=== PATIENT | female | born 1975 | race Caucasian/White ===

== ENCOUNTER → 2019-10-23 14:00 | Outpatient (BNVA) | payer SELFPAY | PROVIDERS: Family Provider Nurse Practitioner Women's Health; Referring Provider Nurse Practitioner Women's Health; Visit Provider Nurse Practitioner Women's Health | DX: N93.9 Abnormal uterine and vaginal bleeding, unspecified (principal); N83.11 Corpus luteum cyst of right ovary; D25.9 Leiomyoma of uterus, unspecified | CPT/HCPCS: 76830; 85025 ==

== ENCOUNTER → 2019-11-27 13:43 | Outpatient (BNVA) | payer SELFPAY | PROVIDERS: Family Provider Nurse Practitioner Women's Health; Visit Provider Nurse Practitioner Women's Health | DX: N93.9 Abnormal uterine and vaginal bleeding, unspecified (principal) | CPT/HCPCS: 81025 ==

== ENCOUNTER → 2019-11-28 08:18 | Outpatient (BNVA) | payer SELFPAY | PROVIDERS: Family Provider Nurse Practitioner Women's Health; Visit Provider Nurse Practitioner Women's Health | DX: N93.9 Abnormal uterine and vaginal bleeding, unspecified (principal) | CPT/HCPCS: 88305 ==

== ENCOUNTER 2020-04-02 15:15 | Outpatient (CLI) | payer OTHER, SELFPAY ==
--- NOTE | 2020-04-02 15:22 | MM_ITS ---
WS: [id number] SCREENING DIGITAL MAMMOGRAM WITH CAD HISTORY: SCREENING COMPARISON: 11/22/2018 Bilateral CC and MLO views submitted. Computer aided detection analyzed. Breast composition: The breasts are heterogeneously dense, which may obscure small masses. Area of ar chitectural distortion in the superior LEFT breast was not present on the prior study. Otherwise lisandra sts are negative. MM/[place] [id number] IMPRESSION: BI-RADS: 0-Incomplete: Need additional imaging evaluation FOLLOW UP: Need Additional Imaging LEFT breast: Spot compression views (CC and MLO). True ML. Ultrasound to follow if abnormality persists.
== END 2020-04-02 15:16 | disposition home or self-care (01) ==
LOC: RADSHAW 15:20
PROVIDERS: PCP Family Medicine; Visit Provider Nurse Practitioner Women's Health
DX: Z12.31 Encounter for screening mammogram for malignant neoplasm of breast (principal)
CPT/HCPCS: 77067

== ENCOUNTER 2020-05-07 08:39 | Outpatient (CLI) | payer SELFPAY ==
--- NOTE | 2020-05-07 09:00 | MM_ITS ---
WS: [id number] ADDITIONAL VIEWS LEFT MAMMOGRAM LEFT BREAST ULTRASOUND HISTORY: Left breast abnormal mammo- COMPARISON: 04/02/2020 and 11/22/2018 LEFT MAMMOGRAM: Spot compression views and true ML. Mild architectural distortion 12:00 nearly completely resolves with additional views. There is still a small amount of distortion remaining and ultrasound will be performed. LEFT BREAST ULTRASOUND 2-D and color Doppler imaging submitted. Ultrasound directed to the 12:00 axis is negative for distortion or mass. There are a few small benig n-appearing cysts which are not evident by mammography. MM/[place] [id number] IMPRESSION: BI-RADS: 2-Benign FOLLOW UP: 1 Year Follow-up
--- NOTE | 2020-05-07 09:30 | US_ITS ---
WS: [id number] ADDITIONAL VIEWS LEFT MAMMOGRAM LEFT BREAST ULTRASOUND HISTORY: Left breast abnormal mammo- COMPARISON: 04/02/2020 and 11/22/2018 LEFT MAMMOGRAM: Spot compression views and true ML. Mild architectural distortion 12:00 nearly completely resolves with additional views. There is still a small amount of distortion remaining and ultrasound will be performed. LEFT BREAST ULTRASOUND 2-D and color Doppler imaging submitted. Ultrasound directed to the 12:00 axis is negative for distortion or mass. There are a few small benig n-appearing cysts which are not evident by mammography. US/US breast LT limited* [id number] IMPRESSION: BI-RADS: 2-Benign FOLLOW UP: 1 Year Follow-up
== END 2020-05-07 08:40 | disposition home or self-care (01) ==
LOC: RADSHAW 08:43
PROVIDERS: PCP Family Medicine; Visit Provider Nurse Practitioner Women's Health
DX: R92.8 Other abnormal and inconclusive findings on diagnostic imaging of breast (principal); N60.02 Solitary cyst of left breast
CPT/HCPCS: 76642; 77065

== ENCOUNTER → 2020-11-03 09:20 | Outpatient (BNVA) | payer SELFPAY | PROVIDERS: PCP Family Medicine; Visit Provider Nurse Practitioner Women's Health | DX: N93.9 Abnormal uterine and vaginal bleeding, unspecified (principal) | CPT/HCPCS: 88175 ==

== ENCOUNTER 2021-10-13 15:15 | Outpatient (CLI) | payer OTHER, SELFPAY ==
--- NOTE | 2021-10-13 15:23 | MM_ITS ---
WS: [id number] BILATERAL 3D TOMOSYNTHESIS DIGITAL SCREENING MAMMOGRAPHY WITH CAD CLINICAL INFORMATION: SCREENING HISTORY: Screening mammogram. No current complaints. COMPARISON: April 02, 2020 TECHNIQUE: Bilateral CC and MLO views. FINDINGS: The breasts are composed of heterogeneous fibroglandular density tissue, which can limit the detectio n of small underlying mass lesions. Incidental punctate calcifications. No suspicious mass, asymmetry , calcifications, or architectural distortion. No evidence of malignancy. MM/[place] [id number] IMPRESSION: BI-RADS: 2-Benign FOLLOW UP: 1 Year Follow-up Recommend return to annual screening mammography.
== END 2021-10-13 15:16 | disposition home or self-care (01) ==
LOC: RADSHAW 15:18
PROVIDERS: PCP Family Medicine; Visit Provider Nurse Practitioner Women's Health
DX: Z12.31 Encounter for screening mammogram for malignant neoplasm of breast (principal)
CPT/HCPCS: 77063; 77067

== ENCOUNTER 2022-10-06 12:39 | Outpatient (CLI) | payer BC, SELFPAY | END 2022-10-06 12:40 | disposition home or self-care (01) | PROVIDERS: PCP Family Medicine; Visit Provider Family Medicine | DX: J45.40 Moderate persistent asthma, uncomplicated (principal) | CPT/HCPCS: 94010; 94726; 94729 ==

== ENCOUNTER 2022-10-13 12:37 | Outpatient (CLI) | payer BC, SELFPAY ==
--- NOTE | 2022-10-13 12:50 | MM_ITS ---
WS: [id number] BILATERAL 3D TOMOSYNTHESIS DIGITAL SCREENING MAMMOGRAPHY WITH CAD CLINICAL INFORMATION: SCREENING HISTORY: Screening mammogram. No current complaints. COMPARISON: October 13, 2021 TECHNIQUE: Bilateral CC and MLO views. FINDINGS: The breasts are composed of heterogeneous fibroglandular density tissue, which can limit the detectio n of small underlying mass lesions. No suspicious mass, asymmetry, calcifications, or architectural d istortion. No evidence of malignancy. A few incidental punctate calcifications. MM/[place] [id number] IMPRESSION: BI-RADS: 2-Benign FOLLOW UP: 1 Year Follow-up Recommend return to annual screening mammography.
== END 2022-10-13 12:38 | disposition home or self-care (01) ==
PROVIDERS: PCP Family Medicine; Visit Provider Nurse Practitioner Women's Health
DX: Z12.31 Encounter for screening mammogram for malignant neoplasm of breast (principal)
CPT/HCPCS: 77063; 77067

== ENCOUNTER → 2023-11-17 13:00 | Outpatient (BNVA) | payer BC, SELFPAY | PROVIDERS: PCP Family Medicine; Visit Provider Nurse Practitioner Women's Health | DX: R53.83 Other fatigue (principal); Z12.4 Encounter for screening for malignant neoplasm of cervix; Z01.419 Encounter for gynecological examination (general) (routine) without abnormal findings; N93.9 Abnormal uterine and vaginal bleeding, unspecified; N39.3 Stress incontinence (female) (male) | CPT/HCPCS: 80053; 82306; 84439; 84443; 85025; 87624 ==

== ENCOUNTER → 2024-01-10 08:36 | Outpatient (BNVA) | payer BC, SELFPAY | PROVIDERS: PCP Family Medicine; Visit Provider Obstetrics & Gynecology | DX: N92.6 Irregular menstruation, unspecified (principal); D25.9 Leiomyoma of uterus, unspecified | CPT/HCPCS: 76830 ==

== ENCOUNTER 2024-01-29 01:40 | Observation (INO) | payer BC, SELFPAY ==
[2024-01-29] VITALS (22 sets, daily range): BP systolic 104–145; BP diastolic 68–93; PULSE 64–114; RESP 14–18; TEMP 36.3–36.7; O2SAT 94–100; BMI 27.4
--- NOTE | 2024-01-29 01:51 | ED_ITS ---
HPI - Abdominal Pain 2 General: Chief Complaint: Abdominal Pain Stated Complaint: Abd pain Time Seen by Provider: 01/29/24 01:41 Source: patient Mode of arrival: ambulatory Limitations: no limitations History of Present Illness: 48-year-old female states been having ri ght upper quadrant pain over the last months she was seen in ER in [place] was diagnosed with gallstones on the CT and ultrasound states she to follow-up with Dr. Aragon of general surgery here last week who plans on doing an endoscopic. She states that tonight she has been having severe right upper quadrant pain that radiates to her back states pain is 8 out of 10 she been having some nausea denies any fevers denies any worsening improving factors. Associated Symptoms: Reports nausea; Denies chills, diarrhea, dysuria, fever(s) and vomiting Review of Systems 2 Const: Denies: fever(s), chills, body aches or change in appetite ENMT: Denies: throat pain or dental pain Card: Denies: chest pain Resp: Denies: dyspnea GI: Reports: abdominal pain and nausea; Denies: vomiting or diarrhea : Denies: dysuria Musc: Denies: neck pain or back pain Skin/Breast: Denies: rash Neuro: Denies: headache(s) PFSH ED 2 PFSH: Medical History No pertinent past medical history neghx: htn,dm,thyroid,dvt/pe PCP: Dr. Alvarado Contraceptive management Abnormal uterine bleeding Surgical History History of tonsillectomy and adenoidectomy (~1986) Family History Grandmother Diabetes Maternal Grandmother Father Hypertension Mother Family history of thyroid problem Thyroid disease hypothyroid Family/Other Breast cancer Maternal aunt-breast cancer-dx in her 60s Paternal aunt-breast cancer-dx in her 40s Colon cancer Maternal Aunt--dx age 50's Cervical cancer Maternal Aunt Grandfather Stroke Maternal Denies family history of Ovarian cancer Heart disease Hypercholesteremia Uterine cancer Female Reproductive History: Para: 3 Spontaneous abortions: Yes Physical Exam 2 Const: COMMON NORMALS: no acute distress, patient oriented x3 and healthy appearing HENMT: COMMON NORMALS: normocephalic and atraumatic HEAD & SCALP: n ormocephalic and atraumatic Neck/C-Spine: COMMON NORMALS: full ROM and supple Chest: COMMONS NORMALS: normal inspection of the chest Resp: COMMON NORMALS: normal respiratory effort, No retractions, No use of accessory muscles and clear to auscultation bilaterally AUSCULTATION: clear to auscultation bilaterally Cardio: COMMON NORMALS: regular rate, regular rhythm and No murmurs present (Cardio) RATE: regular rate RHYTHM: regular rhythm GI: COMMON NORMALS: Normal to inspection, nondistended, normoactive bowel sounds present, Soft to palpation and no masses PALPATION: Yes Soft to palpation and Yes Tenderness to palpation present (GI) Details: RUQ Extremity: COMMON NORMALS: normal to inspection and full ROM Neuro: COMMON NORMALS: patient oriented x3, moves all extremities and no focal motor deficits Psych: COMMON NORMALS: mental status grossly normal, Normal thought process present and cooperative THOUGHT PROCESS: Normal thought process present Skin: COMMON NORMALS: no rashes or lesions noted and no wounds GENERAL SKIN EXAM: no rashes or lesions noted Course 2 Vital Signs: Vital signs: Vital Signs Temperature 97.7 F 01/29/24 01:45 Pulse Rate 68 01/29/24 03:47 Respiratory Rate 16 01/29/24 02:33 Blood Pressure 104/68 01/29/24 03:47 Pulse Oximetry 100 01/29/24 03:47 Oxygen Delivery Me thod Nasal Cannula 01/29/24 03:47 Oxygen Flow Rate 2 01/29/24 03:47 MDM - Abdominal Pain Medical Decision Making 48-year-old female who presents here with right upper quadrant abdominal pain she had required multiple doses of pain meds to get her pain under control ultrasound does show distended gallbladder with stones and sludge could be acute or chronic gallbladder disease I did speak to the surgeon on-call will admit at this time did give her dose of antibiotics Medical Records I reviewed the patient's medical records. Lab Data I reviewed the patient's lab results. 01/29/24 02:00 01/29/24 02:00 Labs/Radiology: Radiology Impressions Gallbladder Ultrasound 01/29/24 01:51 IMPRESSION: 1. Distended gallbladder with stones and sludge as well as gallbladder wall thickening. Findings could be related to acute or chronic gallbladder disease. If there is a strong clinical concern for cholecystitis, nuclear medicine hepatobiliary study may add additional information. 2. Mildly dilated common bile duct measuring 8 mm. No definite intraductal stones are appreciated. If there is a clinical concern for an intraductal stone, MRCP/ERCP may add additional information. Abdomen/Pelvis CT 01/29/24 02:28 IMPRESSION: 1. Mild prominence of the intra and extrahepatic bile ducts. No definite intraductal stone is appreciated. Recommend clinical correlation. If there is a clinical concern for an intraductal stone, ERCP/MRCP may add additional information. 2. Mild distension of the gallbladder. No definite gallstones are appreciated. Again, if there is a strong clinical concern for gallbladder disease, ultrasound may add additional information. COMMENTS: Consistent with the [employer]'s Incidental Findings Committee white paper (J Am Marcella Radiol 2018): Any incidental renal lesion less than 1 cm or classified as too small to characterize, or any incidental cystic renal lesion characterized as simple-appearing, is likely benign. No follow-up imaging is recommended for these lesions per consensus recommendations based on imaging criteria. Laboratory Results WBC 8.95 10^3/uL (3.29-11.43) 01/29/24 02:00 RBC 4.66 10^6/uL (3.85-5.65) 01/29/24 02:00 Hgb 14.40 g/dL (11.27-16.99) 01/29/24 02:00 Hct 42.6 % (36-47) 01/29/24 02:00 MCV 91.4 fl (85-98) 01/29/24 02:00 MCH 30.9 pg (27-33) 01/29/24 02:00 MCHC 33.8 g/dL (30-55) 01/29/24 02:00 RDW 12.0 % (12.1-15.1) L 01/29/24 02:00 Plt Count 311 10^3/cmm (157-399) 01/29/24 02:00 MPV 9.5 fL (7.4-10.4) 01/29/24 02:00 Neut % (Auto) 46.0 % 01/29/24 02:00 Lymph % (Auto) 39.8 % 01/29/24 02:00 Payne % (Auto) 6.7 % 01/29/24 02:00 Eos % (Auto) 6.6 % 01/29/24 02:00 Baso % (Auto) 0.7 % 01/29/24 02:00 Neut # (Auto) 4.12 10^3/uL (1.8-7.7) 01/29/24 02:00 Lymph # (Auto) 3.6 10^3/uL (0.8-4.8) 01/29/24 02:00 Payne # (Auto) 0.6 10^3/uL (0.2-0.9) 01/29/24 02:00 Eos # (Auto) 0.6 10^3/uL (0.0-0.8) 01/29/24 02:00 Baso # (Auto) 0.1 10^3/uL (0.0-0.1) 01/29/24 02:00 Nucleated RBC % (auto) 0 % 01/29/24 02:00 Nucleated RBCs # 0.0 /100WBC 01/29/24 02:00 Sodium 138 mmol/L (136-145) 01/29/24 02:00 Potassium 3.7 mmol/L (3.5-5.1) 01/29/24 02:00 Chloride 104 mmol/L (98-107) 01/29/24 02:00 Carbon Dioxide 21 mmol/L (22-29) L 01/29/24 02:00 Anion Gap 16.7 (5-19) 01/29/24 02:00 BUN 14 mg/dL (6-20) 01/29/24 02:00 Creatinine 0.9 mg/dL (0.5-0.9) 01/29/24 02:00 GFR Calculation 67.4 mL/min (90-130) L 01/29/24 02:00 Glucose 114 mg/dL (65-115) 01/29/24 02:00 Calculated Osmolality 287 mOsm/kg (285-295) 01/29/24 02:00 Calcium 9.4 mg/dL (8.5-10.5) 01/29/24 02:00 Total Bilirubin 0.4 mg/dL (0.15-1.2) 01/29/24 02:00 AST 15 U/L (0-32) 01/29/24 02:00 ALT 16 U/L (0-33) 01/29/24 02:00 Alkaline Phosphatase 71 U/L (35-105) 01/29/24 02:00 Total Protein 7.2 g/dL (6.6-8.7) 01/29/24 02:00 Albumin 4.6 g/dL (3.5-5.2) 01/29/24 02:00 Globulin 2.6 g/dL (1.3-4.6) 01/29/24 02:00 Lipase 41 U/L (13-60) 01/29/24 02:00 HCG, Qual Negative (Negative) 01/29/24 02:00 Urine Color Dark yellow (Yellow) A 01/29/24 02:20 Urine Appearance Cloudy (CLEAR) A 01/29/24 02:20 Urine pH 6 (5-7) 01/29/24 02:20 Ur Specific [place] 1.020 (1.005-1.030) 01/29/24 02:20 Urine Protein Neg (Negative) 01/29/24 02:20 Urine Glucose (UA) Norm (Normal) 01/29/24 02:20 Urine Ketones Negative (Negative) 01/29/24 02:20 Urine Blood Trace (Negative) H 01/29/24 02:20 Urine Nitrate Positive (Negative) A 01/29/24 02:20 Urine Bilirubin Neg (Negative) 01/29/24 02:20 Urine Urobilinogen 1 mg/dL (Negative) H 01/29/24 02:20 Ur Leukocyte Esterase Negative (Negative) 01/29/24 02:20 Urine RBC 5-10 /hpf (0-2) H 01/29/24 02:20 Urine WBC 5-10 /hpf (0-5) H 01/29/24 02:20 Ur Squamous Epith Cells 5-10 /hpf (0-5) H 01/29/24 02:20 Amorphous Sediment Trace /hpf 01/29/24 02:20 Urine Bacteria 3+ /hpf (NONE) H 01/29/24 02:20 Urine Mucus 2+ /hpf 01/29/24 02:20 All radiology interpretation(s) finalized by discharge Discharge Plan Discharge Patient Disposition: Admitted As Inpatient Clinical Impression: Abdominal pain, Biliary colic, Cholecystitis Condition: Stable Prescriptions: No Action povidone-iodine [Betadine Swabsticks] 10 % swab 1 applic TOPICAL ONCE Qty: 1 0RF citalopram 10 mg tablet 20 mg PO DAILY omeprazole 40 mg capsule,delayed release(DR/EC) 40 mg PO DAILY norethindrone acetate 5 mg tablet See Rx Instructions .ROUTE .COMPLEX Qty: 90 1RF Dose Instruction: Take 1 tablet by mouth once daily Rx Instructions: Take 1 tablet by mouth once daily Referrals: Nicole Alvarado MD [Primary Care Provider] - Coding Level of Care Code ED Molding Machine Operator Helper for [facility]
--- NOTE | 2024-01-29 01:51 | USR_ITS ---
PROCEDURE INFORMATION: Exam: US Abdomen, Limited; Right Upper Quadrant Exam date and time: 01/29/2024 3:05 AM Age: 48 years old Clinical indication: Abdominal pain; Generalized; Additional info: Ruq pain TECHNIQUE: Imaging protocol: Real time ultrasound of the abdomen with image documentation. Limited exam focused on the right upper quadrant. COMPARISON: CT abdomen pelvis w con* [id number] 01/29/2024 2:39 AM FINDINGS: Liver: Normal. No masses. Gallbladder: The gallbladder is distended. There are stones and sludge within the gallbladder. The gallbladder wall is thickened measuring 5 mm. No pericholecystic fluid is identified. Biliary ducts: The common bile duct is mildly dilated measuring 8 mm. No definite intraductal stones are appreciated. Pancreas: The pancreas is poorly seen secondary to overlying bowel gas. Right kidney: Normal. No mass. No hydronephrosis. US/US gall bladder [id number] IMPRESSION: 1. Distended gallbladder with stones and sludge as well as gallbladder wall thickening. Findings could be related to acute or chronic gallbladder disease. If there is a strong clinical concern for cholecystitis, nuclear medicine hepatobiliary study may add additional information. 2. Mildly dilated common bile duct measuring 8 mm. No definite intraductal stones are appreciated. If there is a clinical concern for an intraductal stone, MRCP/ERCP may add additional information.
[2024-01-29] MEDS: morphine 4 mg/mL SDV 1 mL IVP (01:59)
[2024-01-29] MEDS: ondansetron 2 mg/ML SDV 2 mL 4 MG IVP (01:59)
[2024-01-29 02:09] LABS: Basophils # 0.1 10^3/uL (0.0-0.1); Basophils % 0.7 %; Eosinophils # 0.6 10^3/uL (0.0-0.8); Eosinophils % 6.6 %; Hematocrit 42.6 % (36-47); Lymphocytes # 3.6 10^3/uL (0.8-4.8); Lymphocytes % 39.8 %; Mean Corpuscular HGB Conc 33.8 g/dL (30-55); Mean Corpuscular Hemoglobin 30.9 pg (27-33); Mean Corpuscular Volume 91.4 fl (85-98); Mean Platelet Volume 9.5 fL (7.4-10.4); Monocytes # 0.6 10^3/uL (0.2-0.9); Monocytes % 6.7 %; Neutrophils # 4.12 10^3/uL (1.8-7.7); Nucleated Red Blood Cells % 0 %; Platelet Count 311 10^3/cmm (157-399); Red Blood Count 4.66 10^6/uL (3.85-5.65); White Blood Count 8.95 10^3/uL (3.29-11.43)
[2024-01-29 02:16] LABS: HCG, Serum Qual Negative (Negative)
[2024-01-29 02:23] LABS: Alanine Aminotransferase 16 U/L (0-33); Albumin Level 4.6 g/dL (3.5-5.2); Alkaline Phosphatase 71 U/L (35-105); Anion Gap 16.7 (5-19); Aspartate Amino Transferase 15 U/L (0-32); Blood Urea Nitrogen 14 mg/dL (6-20); Calcium 9.4 mg/dL (8.5-10.5); Carbon Dioxide 21 mmol/L (22-29); Chloride 104 mmol/L (98-107); Creatinine Clr Calc Pharmacy 81.9029; Globulin 2.6 g/dL (1.3-4.6); Glomerular Filtration Rate 67.4 mL/min (90-130); Glucose 114 mg/dL (65-115); Lipase 41 U/L (13-60); Osmolality Calculated 287 mOsm/kg (285-295); Potassium 3.7 mmol/L (3.5-5.1); Sodium 138 mmol/L (136-145); Total Bilirubin 0.4 mg/dL (0.15-1.2); Total Protein 7.2 g/dL (6.6-8.7)
--- NOTE | 2024-01-29 02:28 | CTR_ITS ---
PROCEDURE INFORMATION: Exam: CT Abdomen And Pelvis With Contrast Exam date and time: 01/29/2024 2:39 AM Age: 48 years old Clinical indication: Abdominal pain; Localized; Right upper quadrant (ruq); Patient HX: C/O ruq pain; Additional info: Abd pain TECHNIQUE: Imaging protocol: Computed tomography of the abdomen and pelvis with contrast. Radiation optimization: All CT scans at this facility use at least one of these dose optimization techniques: automated exposure control; mA and/or kV adjustment per patient size (includes targeted exams where dose is matched to clinical indication); or iterative reconstruction. Contrast material: OMNI 350; Contrast volume: 100 ml; Contrast route: INTRAVENOUS (IV); COMPARISON: CT abdomen pelvis w con* [id number] 09/17/2018 11:54 AM RADIATION DOSE METRICS: Total DLP (mGy-cm): 572.12 FINDINGS: Lungs: Lung bases are clear as visualized. Liver: There is a small benign appearing hepatic cyst. There is mild prominence of the intrahepatic bile ducts. The common bile duct measures proximally 8 mm in size. No definite intraductal stones are appreciated. The liver is otherwise normal. Gallbladder and biliary ducts: The gallbladder is mildly distended. No definite gallstones are appreciated. No pericholecystic fluid or gallbladder wall thickening is identified. Pancreas: Normal. No ductal dilation. Spleen: Normal. No splenomegaly. Adrenal glands: Normal. No mass. Kidneys and ureters: There are tiny benign-appearing renal cysts. The kidneys are otherwise normal. Stomach and bowel: Unremarkable. No obstruction. No mucosal thickening. Appendix: No evidence of appendicitis. Intraperitoneal space: There is trace free fluid within the pelvis. No free air is identified. Vasculature: Unremarkable. No abdominal aortic aneurysm. Lymph nodes: Unremarkable. No enlarged lymph nodes. Urinary bladder: Unremarkable as visualized. Reproductive: Unremarkable as visualized. Bones/joints: Unremarkable. No acute fracture. Soft tissues: Unremarkable. CT/CT abdomen pelvis w con* [id number] IMPRESSION: 1. Mild prominence of the intra and extrahepatic bile ducts. No definite intraductal stone is appreciated. Recommend clinical correlation. If there is a clinical concern for an intraductal stone, ERCP/MRCP may add additional information. 2. Mild distension of the gallbladder. No definite gallstones are appreciated. Again, if there is a strong clinical concern for gallbladder disease, ultrasound may add additional information. COMMENTS: Consistent with the [employer]'s Incidental Findings Committee white paper (J Am Marcella Radiol 2018): Any incidental renal lesion less than 1 cm or classified as too small to characterize, or any incidental cystic renal lesion characterized as simple-appearing, is likely benign. No follow-up imaging is recommended for these lesions per consensus recommendations based on imaging criteria.
[2024-01-29 02:33] LABS: Add Urine Microscopic? YES; Bacteria Urine 3+ /hpf; Bilirubin Urine Neg (Negative); Blood Urine Trace (Negative); Glucose Urine UA Norm (Normal); Ketones Urine Negative (Negative); Leukocyte Esterase Urine Negative (Negative); Mucus Urine 2+ /hpf; Nitrate Urine Positive (Negative); Protein Urine Neg (Negative); Urine Appearance Cloudy (CLEAR); Urine Color Dark Yellow (Yellow); Urobilinogen Urine 1 mg/dL (Negative); pH Urine 6 (5-7)
[2024-01-29] MEDS: HYDROmorphone 1 mg/mL INJ 1 mL IVP (02:33)
[2024-01-29 02:34] LABS: Add Urine Culture? Yes; Amorphous Sediment Urine TRACE /hpf
[2024-01-29] MEDS: iohexol 350 mg/mL 500 mL Btl (per mL) IV (02:43)
[2024-01-29] MEDS: piperacillin-tazobactam 3.375 GM in sodium chloride 0.9% (plus) 50 ML IV ×2 (04:14→11:15)
[2024-01-29] MEDS: sodium chloride 0.9% 1,000 ML 100 ML IV (04:14)
--- NOTE | 2024-01-29 04:23 | PC.NURSE ---
Report called to Sally WHALEN on Med-Surg; all questions and concerns addressed at time of report.
--- NOTE | 2024-01-29 05:41 | MR_ITS ---
WS: [id number] MRCP (MAGNETIC RESONANCE CHOLANGIOPANCREATOGRAPHY) HISTORY: Bile duct dilatation COMPARISON: Gallbladder ultrasound 01/29/[address] 01/29/2024 TECHNIQUE: Multiple sequences are performed to evaluate the intra and extrahepatic ducts. Gallbladder is well distended. Transverse diameter is less than 4 cm. There are stones within the gal lbladder. There is also small amount of sludge. Very small amount of pericholecystic fluid and edema. Common bile duct is normal at 6 mm. No intraluminal filling defect. No mass or stone identified. No central duct dilatation. Normal size liver. There is a small cluster of cysts along the superior lobe of the liver near the di aphragm measuring 6 x 2 mm. No intrahepatic duct dilatation is appreciated by MRI as seen on the CT. Normal pancreas. Pancreatic duct is not dilated. Visualized kidneys and spleen are negative. No adren al mass. No ascites. MR/MR MRCP [id number] IMPRESSION: 1. Cholelithiasis with a small amount of gallbladder sludge and pericholecysti c fluid. Findings are consistent with mild early changes of acute cholecystitis . Not hydropic gallbladder. 2. Normal common bile duct. No stone or obstruction. Previously described mild central hepatic duct dilatation is not appreciated by MRI. 3. Small cluster of hepatic cysts.
[2024-01-29] MEDS: ketorolac 30 mg/mL INJ 15 MG IVP ×3 (06:14→17:00)
--- NOTE | 2024-01-29 08:41 | P.HP_ITS ---
Providers/Chief Complaint 2 Admitting Physician: Aaron Torres MD Primary Care Provider: Nicole Alvarado MD Chief Complaint: Abd pain History of Present Illness Opal Toscano is a 48 year old female who presented to the hospital complaining of right upper quadrant pain radiating to the back. Patient states that the pain was precipitated by eating out and having some drinks. She had a similar episode some months ago and she was evaluated at hospital in [place] where she was told that she had biliary colic no acute indication for surgery. She has been following with a general surgeon in the community who told her symptoms did not quite match gallbladder disease and therefore was going to do an EGD and colonoscopy before proceeding with laparoscopic cholecystectomy. Patient was admitted with a suspected diagnosis of biliary colic versus acute cholecystitis. By the time of my evaluation her symptoms had completely resolved. Review of Systems 2 General: Reports: 10 or more systems reviewed and unremarkable except in HPI and below Medications/Allergies Home Medications Medication Instructions Recorded Confirmed Last Taken Type norethindrone acetate 5 mg tablet See Rx Instructions .Route 11/17/23 01/29/24 Unknown Rx .COMPLEX #90 tabs citalopram 40 mg tablet 40 mg PO DAILY 01/29/24 01/29/24 Unknown History Allergies Allergy/AdvReac Type Severity Reaction Status Date / Time famotidine [From Pepcid] Allergy VOMITING Verified 01/12/24 14:49 PFSH Acute 2 PFSH: Medical History No pertinent past medical history neghx: htn,dm,thyroid,dvt/pe PCP: Dr. Alvarado Contraceptive management Abnormal uterine bleeding Surgical History History of tonsillectomy and adenoidectomy (~1986) Family History Grandmother Diabetes Maternal Grandmother Father Hypertension Mother Family history of thyroid problem Thyroid disease hypothyroid Family/Other Breast cancer Maternal aunt-breast cancer-dx in her 60s Paternal aunt-breast cancer-dx in her 40s Colon cancer Maternal Aunt--dx age 50's Cervical cancer Maternal Aunt Grandfather Stroke Maternal Denies family history of Ovarian cancer Heart disease Hypercholesteremia Uterine cancer Female Reproductive History: Para: 3 Spontaneous abortions: Yes Vitals/I&O/Wt Last Vital Signs Temp 98.1 F 01/29/24 08:18 Pulse 70 01/29/24 08:18 Resp 17 01/29/24 08:18 BP 127/80 01/29/24 08:18 Pulse Ox 100 01/29/24 08:18 O2 Del Method Room Air 01/29/24 08:18 O2 Flow Rate 2 01/29/24 03:47 01/28/24 01/29/24 01/29/24 22:59 06:59 14:59 Intake Total 50 / 50 Balance 50 / 50 Weight last 48 hrs Weight 174 lb 7 oz Weight 174 lb 7 oz Weight 170 lb Physical Exam 2 Narrative: General : Patient is well developed , no acute distress, oriented x3 Head : Normal cephalic, a-traumatic. Nose : Mucous membranes are without erythema. Lungs : Equal chest rise bilaterally, no use of accessory muscles, trachea is midline. CV : Rate and rhythm are normal. Abdomen : Soft, ND, NT, no g/r/m, negative Gaines sign Extremities : No edema. Upper extremities are normal bilaterally. Back : non-tender to palpation, no CVA tenderness. Data 01/29/24 02:00 01/29/24 02:00 A&P Assessment and plan (1) Biliary colic: (2) Dilated bile duct: Plan after complete history physical examination and review of all available clinical data the following is my assessment. Patient symptoms are appear to be more consistent with biliary colic rather than acute cholecystitis, she does not meet criteria for acute cholecystitis following [place] guidelines 18. It is remarkable that CT scan of the abdomen as well as gallbladder ultrasound showed intra and extra hepatic mild ductal dilation, with this finding I have talked to the patient I think it will be appropriate to proceed with an MRCP, if there is evidence of gallstones in the bile ducts she will require a ERCP before removal of the gallbladder, but indicates that the MRCP is normal she will be scheduled for an elective cholecystectomy. I discussed with the patient she is agreeable with the plan. -N.p.o. -MRCP today -Pain control -IV fluids -IV antibiotics Attestations 2 Medical Necessity Statement*: Patient will very be discharged today Coding Level of Care Code Acute Code for [facility] Diagnoses Biliary colic K80.50 Dilated bile duct K83.8
[2024-01-29] MEDS: citalopram 20 mg Tablet 40 MG PO (10:36)
[2024-01-29] MEDS: pantoprazole 40 mg SDV IVP (10:36)
--- NOTE | 2024-01-29 11:20 | P.MISC_ITS ---
Miscellaneous Note Purpose of Documentation: Update on patient care Note: MRCP was reviewed, there is no evidence of biliary dilation, there is some demonstration of no pericholecystic fluid around the gallbladder, this is most likely consistent with early acute cholecystitis. With this findings I am inclined to offer the patient surgery before she leaves the hospital to prevent further worsening of her symptoms and need for emergent surgery in the next coup le of days. I have offered the patient laparoscopic cholecystectomy for acute cholecystitis. All the risk and benefits of the procedure were discussed with the patient including the risks of bleeding, infection, damage to surrounding structures including liver, duodenum, colon, risk of injuring bile ducts requiring extensive surgery at higher level of care facility, risk of retained stones, bile leak, bili Karin, need for subtotal cholecystectomy, hernia and wound related complications, need to conversion to open procedure. Patient shows understanding and would like to proceed. Lap jreomy will be booked for today and patient will be discharged after surgery.
--- NOTE | 2024-01-29 11:31 | PC.NURSE ---
surgery Pt was taken down in wheelchair to pre-op accompanied to mom and .
[2024-01-29] MEDS: scopolamine 1.5 Patch 1 PATCH TRANSDERMA (11:49)
[2024-01-29] MEDS: sodium chloride 0.9% 1,000 ML 30 ML IV (11:49)
[2024-01-29] MEDS: lidocaine-epi 1% 20 mL INJ 10 ML INJECTION (13:03)
[2024-01-29] MEDS: BUPivacaine 0.25% INJ 10 mL INJECTION (13:03)
--- NOTE | 2024-01-29 13:41 | P.ANESASSM_ITS ---
Pre-Anesthetic Assessment Height/Weight: Height 1.68 m Weight 79.124 kg Temp Pulse Resp BP Pulse Ox O2 Del Method O2 Flow Rate 97.5 F L 64 18 136/87 97 Room Air 2 01/29/24 11:55 01/29/24 11:55 01/29/24 11:55 01/29/24 11:55 01/29/24 11:55 01/29/24 11:55 01/29/24 03:47 Operation Date: 01/29/24 12:10 Proposed Procedures p Laparoscopic Cholecystectomy(Not Applicable) - Aaron Torres MD Familial anesthetic complications: none Was Beta Anuradha taken within 24 hours: N/A Was Clonidine taken within 24 hours: N/A Last intake: Intake Last Liquid Date 01/28/24 Last Liquid Time 23:59 Last Solid Date 01/28/24 Last Solid Time 21:30 Social No alcohol and No tobacco Exam alert, oriented x 3, clear to auscultation bilaterally and regular rate & rhythm Airway Submandibular: within normal limits Cervical ROM: within normal limits Mallampati: Class II Dentition: full Neuropsych Anxiety and Depression Anesthetic Plan ASA status: 2 Anesthesia: General Medications/Allergies Home Medications Medication Instructions Recorded Confirmed Last Taken Type norethindrone acetate 5 mg tablet See Rx Instructions .Route 11/17/23 01/29/24 Unknown Rx .COMPLEX #90 tabs citalopram 40 mg tablet 40 mg PO DAILY 01/29/24 01/29/24 Unknown History Allergies Allergy/AdvReac Type Severity Reaction Status Date / Time famotidine [From Pepcid] Allergy VOMITING Verified 01/12/24 14:49 Current Medications Generic Name Dose Route Start Last Admin Trade Name Aston PRN Reason Stop Dose Admin Citalopram Hydrobromide 40 mg 01/29/24 09:00 01/29/24 10:36 Citalopram 20 Mg Tablet PO 40 mg DAILY JONATHAN Administration Sodium Chloride 1,000 mls @ 100 mls/hr 01/29/24 04:00 01/29/24 04:14 Sodium Chloride 0.9% IV 100 mls/hr .Q10H JONATHAN Administration Piperacillin Sod/Tazobactam 50 mls @ 12.5 mls/hr 01/29/24 12:00 01/29/24 11:40 Sod 3.375 gm/ Sodium Chloride IV Infused Q8H JONATHAN Infusion Protocol Sodium Chloride 1,000 mls @ 30 mls/hr 01/29/24 11:45 01/29/24 11:49 Sodium Chloride 0.9% IV 01/30/24 11:44 30 mls/hr .Q24H JONATHAN Administration Ketorolac Tromethamine 15 mg 01/29/24 05:45 01/29/24 11:12 Ketorolac 30 Mg/Ml Inj IVP 02/03/24 05:44 15 mg Q6H JONATHAN Administration Pantoprazole Sodium 40 mg 01/29/24 09:00 01/29/24 10:36 Pantoprazole 40 Mg Sdv IVP 40 mg DAILY JONATHAN Administration PFSH Anesthesia Medical History No pertinent past medical history neghx: htn,dm,thyroid,dvt/pe PCP: Dr. Alvarado Contraceptive management Abnormal uterine bleeding Surgical History History of tonsillectomy and adenoidectomy (~1986) Family History Grandmother Diabetes Maternal Grandmother Father Hypertension Mother Family history of thyroid problem Thyroid disease hypothyroid Family/Other Breast cancer Maternal aunt-breast cancer-dx in her 60s Paternal aunt-breast cancer-dx in her 40s Colon cancer Maternal Aunt--dx age 50's Cervical cancer Maternal Aunt Grandfather Stroke Maternal Denies family history of Ovarian cancer Heart disease Hypercholesteremia Uterine cancer Female Reproductive History Para: 3 Spontaneous abortions: Yes Data Anesthesia 01/29/24 02:00 01/29/24 02:00 Short CBC 01/29/24 Range/Units 02:00 WBC 8.95 (3.29-11.43) 10^3/uL Hgb 14.40 (11.27-16.99) g/dL Hct 42.6 (36-47) % MCV 91.4 (85-98) fl Plt Count 311 (157-399) 10^3/cmm Neut % (Auto) 46.0 % Neut # (Auto) 4.12 (1.8-7.7) 10^3/uL BMP 01/29/24 02:00 Sodium 138 Potassium 3.7 Chloride 104 Carbon Dioxide 21 L BUN 14 Creatinine 0.9 Glucose 114 Calcium 9.4 Liver Function 01/29/24 Range/Units 02:00 Total Bilirubin 0.4 (0.15-1.2) mg/dL AST 15 (0-32) U/L ALT 16 (0-33) U/L Alkaline Phosphatase 71 (35-105) U/L Albumin 4.6 (3.5-5.2) g/dL Urine 01/29/24 Range/Units 02:20 Urine Color Dark yellow A (Yellow) Urine Appearance Cloudy A (CLEAR) Urine pH 6 (5-7) Ur Specific [place] 1.020 (1.005-1.030) Urine Protein Neg (Negative) Urine Glucose (UA) Norm (Normal) Urine Ketones Negative (Negative) Urine Nitrate Positive A (Negative) Urine Bilirubin Neg (Negative) Ur Leukocyte Esterase Negative (Negative) Urine RBC 5-10 H (0-2) /hpf Urine WBC 5-10 H (0-5) /hpf Cardiac Studies: 2 No Data to Display
--- NOTE | 2024-01-29 14:57 | PM.OP ---
Operative Report Date of procedure: January 29, 2024 Pre-op diagnosis: Acute cholecystitis Post-op diagnosis: same Post-op findings: There was acute cholecystitis with severe inflammation of the gallbladder and pericholecystic tissue, there was adhesions of the omentum to the gallbladder and the duodenum was also pulled up with the adhesions. Significant lamination the hepatocystic triangle. Procedure done: Laparoscopic cholecystectomy Implants: Surgicel Specimens removed/disposition: Gallbladder Surgeon: Aaron Torres MD Food Cooking Machine Operator: ARI OR Staff Estimated blood loss: 50 Brief History: 48-year-old female who presented with biliary colic imaging was concerning possibility of acute cholecystitis, MRCP was obtained was normal for biliary ductal dilation but comparison pericholecystic fluid consistent with the possibility of acute cholecystitis. After discussion risk benefits as documented my preop note with side to proceed with laparoscopic possible open cholecystectomy. Procedure: Patient was brought into the OR, she was placed in a supine position. General anesthesia was given. The abdomen was prepped and draped in the usual sterile fashion. The abdomen was accessed via infraumbilical incision measuring 15 mm with an open technique, [place] trocar was placed and fixed to the fascia with #0 Vicryl. Pneumoperitoneum was achieved and initial laparoscopy shows no evidence of visceral injury during entry. Additional 5 mm trocars were placed in the epigastrium right upper quadrant and right flank positions. This was done under direct visualization. I grasped the gallbladder from the fundus, it was noted to have a redundant fundus. After retracting cephalad I took down adhesions from the omentum and the duodenum to the gallbladder with gentle blunt dissection. I then proceeded to grab the gallbladder from the infundibulum and I retracted the infundibulum in the inferolateral direction, I given the peritoneum anterior to the infundibulum in the medial and lateral direction to the edges of the liver and then on the sides of the gallbladder to allow for better visualization. There was a significant inflammation of the hepatocystic triangle making dissection very challenging. I was able to encircle the cystic duct and the cystic artery but I was unable to elevate the lower third of the gallbladder from the liver bed, therefore I decided to transect the cystic artery, the artery was double clipped proximally and single clipped distally and transected. This allowed better visualization of the hepatocystic triangle, at this point with careful electrocautery and blunt dissection I was able to elevate the lower third of the gallbladder from the liver bed. The cystic duct was then double clipped proximally and single clipped distally and transected. The gallbladder was removed from the liver bed there was significant inflammation on the gallbladder wall, on the upper third of the gallbladder bed after removal of bleeding vessel was noted, this was coming from the liver directly to the gallbladder. I grasped the vessel with the [place] and placed 2 clips for hemostasis. The gallbladder was then removed from the abdomen in an Endo Catch bag through the umbilical trocar site. I then proceeded to irrigate the gallbladder with and removed all residual blood. Clips were noted to be in good position and no evidence of bile leak or bleeding was noted. I subsequently proceeded to place Surgicel in the gallbladder bed to prevent any further bleeding from that bleeding vessel that was noted on the liver bed. I then closed umbilical trocar site with a 0 Vicryl in a René-Carlos suture passer under direct visualization. The epigastrium right upper quadrant trocars were removed under direct visualization and the right flank trocar was used to remove the pneumoperitoneum and subsequently removed. Wounds were closed in layers using #4 Monocryl for the skin and Dermabond was applied. At the end of the procedure all counts were correct, the patient tolerated well the procedure was extubated and transferred to the PACU in stable condition.
--- NOTE | 2024-01-29 15:05 | PM.DCS ---
Discharge Providers Date of Admission: 01/29/24 04:10 Date of Discharge: January 29, 2024 Attending Provider at Admission: Aaron Torres MD Attending Provider at Discharge: Aaron Torres MD Primary Care Provider: Nicole Alvarado MD Diagnoses at Discharge Discharge Diagnosis (1) Biliary colic: Status: Acute (2) Dilated bile duct: Status: Acute Reason for Visit Reason for Visit: Abd pain Hospital Course Hospital Course 48-year-old female who presented to the hospital with acute cholecystitis, initially was thought to be biliary colic eval additional imaging show evidence of pericholecystic fluid which was consistent with early acute cholecystitis. After discussion of the risk and benefits we will proceed to the OR for laparoscopic cholecystectomy, this was done without complications. Patient will be discharged home to follow-up as the clinic as outpatient. Physical Exam GI: OTHER: Abdomen is soft, appropriately tender, surgical incisions are covered with Dermabond. Discharge Data Studies Completed and Pending Completed Studies During Hospitalization Category Date Time Status CT abdomen pelvis w con* [id number] Stat Cat Scan 01/29/24 02:28 Completed MR MRCP [id number] Routine MRI 01/29/24 05:41 Completed US gall bladder [id number] Stat Ultrasound 01/29/24 01:51 Completed Pending at discharge Category Date Time Status Urine Culture Stat Lab 01/29/24 02:20 Received Pathology: Surgical [PTH] Routine Pth 01/29/24 15:02 Ordered Radiology Impressions Gallbladder Ultrasound 01/29/24 01:51 IMPRESSION: 1. Distended gallbladder with stones and sludge as well as gallbladder wall thickening. Findings could be related to acute or chronic gallbladder disease. If there is a strong clinical concern for cholecystitis, nuclear medicine hepatobiliary study may add additional information. 2. Mildly dilated common bile duct measuring 8 mm. No definite intraductal stones are appreciated. If there is a clinical concern for an intraductal stone, MRCP/ERCP may add additional information. Abdomen/Pelvis CT 01/29/24 02:28 IMPRESSION: 1. Mild prominence of the intra and extrahepatic bile ducts. No definite intraductal stone is appreciated. Recommend clinical correlation. If there is a clinical concern for an intraductal stone, ERCP/MRCP may add additional information. 2. Mild distension of the gallbladder. No definite gallstones are appreciated. Again, if there is a strong clinical concern for gallbladder disease, ultrasound may add additional information. COMMENTS: Consistent with the [employer]'s Incidental Findings Committee white paper (J Am Marcella Radiol 2018): Any incidental renal lesion less than 1 cm or classified as too small to characterize, or any incidental cystic renal lesion characterized as simple-appearing, is likely benign. No follow-up imaging is recommended for these lesions per consensus recommendations based on imaging criteria. Cholangiopancreatography MRI 01/29/24 05:41 IMPRESSION: 1. Cholelithiasis with a small amount of gallbladder sludge and pericholecystic fluid. Findings are consistent with mild early changes of acute cholecystitis. Not hydropic gallbladder. 2. Normal common bile duct. No stone or obstruction. Previously described mild central hepatic duct dilatation is not appreciated by MRI. 3. Small cluster of hepatic cysts. Laboratory Results WBC 8.95 10^3/uL (3.29-11.43) 01/29/24 02:00 RBC 4.66 10^6/uL (3.85-5.65) 01/29/24 02:00 Hgb 14.40 g/dL (11.27-16.99) 01/29/24 02:00 Hct 42.6 % (36-47) 01/29/24 02:00 MCV 91.4 fl (85-98) 01/29/24 02:00 MCH 30.9 pg (27-33) 01/29/24 02:00 MCHC 33.8 g/dL (30-55) 01/29/24 02:00 RDW 12.0 % (12.1-15.1) L 01/29/24 02:00 Plt Count 311 10^3/cmm (157-399) 01/29/24 02:00 MPV 9.5 fL (7.4-10.4) 01/29/24 02:00 Neut % (Auto) 46.0 % 01/29/24 02:00 Lymph % (Auto) 39.8 % 01/29/24 02:00 [place] % (Auto) 6.7 % 01/29/24 02:00 Eos % (Auto) 6.6 % 01/29/24 02:00 Baso % (Auto) 0.7 % 01/29/24 02:00 Neut # (Auto) 4.12 10^3/uL (1.8-7.7) 01/29/24 02:00 Lymph # (Auto) 3.6 10^3/uL (0.8-4.8) 01/29/24 02:00 [place] # (Auto) 0.6 10^3/uL (0.2-0.9) 01/29/24 02:00 Eos # (Auto) 0.6 10^3/uL (0.0-0.8) 01/29/24 02:00 Baso # (Auto) 0.1 10^3/uL (0.0-0.1) 01/29/24 02:00 Nucleated RBC % (auto) 0 % 01/29/24 02:00 Nucleated RBCs # 0.0 /100WBC 01/29/24 02:00 Sodium 138 mmol/L (136-145) 01/29/24 02:00 Potassium 3.7 mmol/L (3.5-5.1) 01/29/24 02:00 Chloride 104 mmol/L (98-107) 01/29/24 02:00 Carbon Dioxide 21 mmol/L (22-29) L 01/29/24 02:00 Anion Gap 16.7 (5-19) 01/29/24 02:00 BUN 14 mg/dL (6-20) 01/29/24 02:00 Creatinine 0.9 mg/dL (0.5-0.9) 01/29/24 02:00 GFR Calculation 67.4 mL/min (90-130) L 01/29/24 02:00 Glucose 114 mg/dL (65-115) 01/29/24 02:00 Calculated Osmolality 287 mOsm/kg (285-295) 01/29/24 02:00 Calcium 9.4 mg/dL (8.5-10.5) 01/29/24 02:00 Total Bilirubin 0.4 mg/dL (0.15-1.2) 01/29/24 02:00 AST 15 U/L (0-32) 01/29/24 02:00 ALT 16 U/L (0-33) 01/29/24 02:00 Alkaline Phosphatase 71 U/L (35-105) 01/29/24 02:00 Total Protein 7.2 g/dL (6.6-8.7) 01/29/24 02:00 Albumin 4.6 g/dL (3.5-5.2) 01/29/24 02:00 Globulin 2.6 g/dL (1.3-4.6) 01/29/24 02:00 Lipase 41 U/L (13-60) 01/29/24 02:00 HCG, Qual Negative (Negative) 01/29/24 02:00 Urine Color Dark yellow (Yellow) A 01/29/24 02:20 Urine Appearance Cloudy (CLEAR) A 01/29/24 02:20 Urine pH 6 (5-7) 01/29/24 02:20 Ur Specific [place] 1.020 (1.005-1.030) 01/29/24 02:20 Urine Protein Neg (Negative) 01/29/24 02:20 Urine Glucose (UA) Norm (Normal) 01/29/24 02:20 Urine Ketones Negative (Negative) 01/29/24 02:20 Urine Blood Trace (Negative) H 01/29/24 02:20 Urine Nitrate Positive (Negative) A 01/29/24 02:20 Urine Bilirubin Neg (Negative) 01/29/24 02:20 Urine Urobilinogen 1 mg/dL (Negative) H 01/29/24 02:20 Ur Leukocyte Esterase Negative (Negative) 01/29/24 02:20 Urine RBC 5-10 /hpf (0-2) H 01/29/24 02:20 Urine WBC 5-10 /hpf (0-5) H 01/29/24 02:20 Ur Squamous Epith Cells 5-10 /hpf (0-5) H 01/29/24 02:20 Amorphous Sediment Trace /hpf 01/29/24 02:20 Urine Bacteria 3+ /hpf (NONE) H 01/29/24 02:20 Urine Mucus 2+ /hpf 01/29/24 02:20 Vitals Last Vital Signs Temp 97.5 F L 01/29/24 11:55 Pulse 64 01/29/24 11:55 Resp 18 01/29/24 11:55 BP 136/87 01/29/24 11:55 Pulse Ox 97 01/29/24 11:55 O2 Del Method Room Air 01/29/24 11:55 O2 Flow Rate 2 01/29/24 03:47 Discharge Plan Discharge Patient Disposition: Home Condition: Stable Prescriptions: New oxycodone 5 mg tablet 5 mg PO Q6H PRN (Reason: pain) Qty: 20 0RF amoxicillin-pot clavulanate 875-125 mg tablet 1 tab PO BID Qty: 14 0RF pantoprazole 40 mg tablet,delayed release (DR/EC) 40 mg PO DAILY Qty: 14 0RF polyethylene glycol 3350 [Gavilax] 17 gram powder in packet 17 g PO DAILY Qty: 5 0RF Continued norethindrone acetate 5 mg tablet See Rx Instructions .ROUTE .COMPLEX Qty: 90 1RF Dose Instruction: Take 1 tablet by mouth once daily Rx Instructions: Take 1 tablet by mouth once daily citalopram 40 mg tablet 40 mg PO DAILY Discharge Orders: Discharge Order (Routine); Ordered 01/29/24 Ordered By: Aaron Torres Referrals: Nicole Alvarado MD [Primary Care Provider] - Discharge Diet: Low Fat Discharge Activity: Limit activity as instructed Patient Instructions: Acute Wound Care (DC), Opioid Safety, Post Anesthesia Care Activity Restrictions/Additional Instructions: Please walk as much as possible to improve your recovery. You can shower starting the day after tomorrow, let soap and water run over your wounds and then pat dry. No heavy lifting, that means nothing more than 10 pounds for the next 6 weeks. This to prevent hernia. Please take all your antibiotics even if you are feeling perfectly fine, if you take oxycodone please make sure to take the stool softener or laxative to prevent constipation. Return to the hospital if you have severe abdominal pain, yellowing of the skin, purulence from your wounds nausea vomiting or fever. Discharge Attestations Time Spent in Discharge Care*: less than 30 min Quality Metrics Clinical Quality Measures [ No reported AMI, CVA or VTE this stay] Coding Level of Care Code Acute Code for Chg Fwd Diagnoses Biliary colic K80.50 Dilated bile duct K83.8
[2024-01-29] MEDS: fentaNYL 50 mcg/mL INJ 2mL IVP (15:38)
--- NOTE | 2024-01-29 15:44 | ANE.PACU2 ---
Inpatient post-anesthesia follow up: Airway intact: Yes Vital signs: Temperature 97.6 F Pulse Rate 97 Respiratory Rate 17 Blood Pressure 134/82 Pulse Oximetry 97 Oxygen Delivery Me thod Room Air Oxygen Flow Rate 6 Fraction of Inspir ed Oxygen Hydration adequate: Yes Nausea and vomiting: No Pain level: 3 Mental status: Baseline
== END 2024-01-29 18:30 | disposition home or self-care (01) ==
LOC: ER 04:10 → MEDSURG 11:04
PROVIDERS: Admitting Provider Surgery; Emergency Provider Emergency Medicine; PCP Family Medicine; Visit Provider Surgery
PROC: 0FT44ZZ Resection of Gallbladder, Percutaneous Endoscopic Approach (ICD-10-PCS; CPT 47562; principal; 2024-01-29 12:00)
DX: K80.10 Calculus of gallbladder with chronic cholecystitis without obstruction (principal); K66.0 Peritoneal adhesions (postprocedural) (postinfection)
CPT/HCPCS: 47562; 74177; 74181; 76705; 80053; 81001; 83690; 84703; 85025; 87077; 87086; 87186; 88304; 96365; 96375; 99285; C9113; G0378; J0330; J1100; J1170; J1885; J2250; J2270; J2405; J2543; J2704; J3010; J3490; J7030; Q9967

== ENCOUNTER 2024-04-09 09:18 | Observation (INO) | payer BC, SELFPAY ==
[2024-04-08 08:40] LABS: Charge for UA Resulting for Rev
[2024-04-08 08:45] LABS: Basophils % 0.7 %; Eosinophils # 0.3 10^3/uL (0.0-0.8); Hematocrit 42.4 % (36-47); Lymphocytes # 1.8 10^3/uL (0.8-4.8); Lymphocytes % 32.6 %; Mean Corpuscular HGB Conc 33.5 g/dL (30-55); Mean Corpuscular Hemoglobin 30.9 pg (27-33); Mean Corpuscular Volume 92.4 fl (85-98); Mean Platelet Volume 8.9 fL (7.4-10.4); Monocytes # 0.4 10^3/uL (0.2-0.9); Monocytes % 6.6 %; Neutrophils # 3.06 10^3/uL (1.8-7.7); Neutrophils % 54.7 %; Nucleated Red Blood Cells % 0 %; Platelet Count 313 10^3/cmm (157-399); Red Blood Count 4.59 10^6/uL (3.85-5.65); Red Cell Distribution Width 12.3 % (12.1-15.1); White Blood Count 5.59 10^3/uL (3.29-11.43)
[2024-04-08 08:48] LABS: Bilirubin Urine Negative (Negative); Blood Urine Non-haemolysed trace (Negative); Glucose Urine UA Negative (Normal); Ketones Urine Negative (Negative); Leukocyte Esterase Urine Trace (Negative); Nitrate Urine Positive (Negative); Protein Urine Negative (Negative); Specific Gravity, Urine 1.026 (1.005-1.030); Urine Appearance Cloudy (CLEAR); Urine Color Yellow (Yellow); pH Urine 5.5 (5-7)
--- NOTE | 2024-04-08 08:48 | ANES.PREANE2 ---
Pre-Anesthetic Assessment Height/Weight: Height 1.68 m Operation Date: 04/09/24 07:00 Proposed Procedures p Total Vaginal Hysterectomy 02071, [id number],N92.0, D25.1, N39.3(Not Applicable) - Darion Delgado MD s Salpingo-Oophorectomy (Vaginal)(Bilateral) - Darion Delgado MD Familial anesthetic complications: None Was Beta Anuradha taken within 24 hours: N/A Was Clonidine taken within 24 hours: N/A Social No alcohol and No tobacco Exam alert, oriented x 3, clear to auscultation bilaterally and regular rate & rhythm Airway Mallampati: Class I Dentition: full GI Gastroesophageal Reflux Disease Anesthetic Plan ASA status: 2 Anesthesia: General Risk of > 500 ml blood loss (7ml/kg in children): No Medications/Allergies Home Medications Medication Instructions Recorded Confirmed Last Taken Type citalopram 40 mg tablet 40 mg PO DAILY 01/29/24 04/08/24 04/08/24 History norethindrone acetate 5 mg tablet 5 mg PO DAILY 04/08/24 04/08/24 04/08/24 History omeprazole 40 mg capsule,delayed 40 mg PO DAILY 04/08/24 04/08/24 04/08/24 History release Allergies Allergy/AdvReac Type Severity Reaction Status Date / Time famotidine [From Pepcid] Allergy VOMITING Verified 04/04/24 08:23 [facility] Anesthesia Medical History No pertinent past medical history neghx: htn,dm,thyroid,dvt/pe PCP: Dr. Alvarado Contraceptive management Abnormal uterine bleeding Surgical History History of tonsillectomy and adenoidectomy (~1986) Family History Grandmother Diabetes Maternal Grandmother Father Hypertension Mother Family history of thyroid problem Thyroid disease hypothyroid Family/Other Breast cancer Maternal aunt-breast cancer-dx in her 60s Paternal aunt-breast cancer-dx in her 40s Colon cancer Maternal Aunt--dx age 50's Cervical cancer Maternal Aunt Grandfather Stroke Maternal Denies family history of Ovarian cancer Heart disease Hypercholesteremia Uterine cancer Social History Smoking and tobacco/nicotine status: never used tobacco/nicotine Female Reproductive History Para: 3 Spontaneous abortions: Yes Data Anesthesia 04/08/24 08:28 04/08/24 08:28 Short CBC 04/08/24 Range/Units 08:28 WBC 5.59 (3.29-11.43) 10^3/uL Hgb 14.20 (11.27-16.99) g/dL Hct 42.4 (36-47) % MCV 92.4 (85-98) fl Plt Count 313 (157-399) 10^3/cmm Neut % (Auto) 54.7 % Neut # (Auto) 3.06 (1.8-7.7) 10^3/uL Cardiac Studies: No Data to Display
[2024-04-08 08:50] LABS: Bacteria Urine 4+ /hpf; Hyaline Casts Urine 2.05 /lpf; WBC Urine 21-50 /hpf (0-5)
[2024-04-08 09:17] LABS: Alanine Aminotransferase 16 U/L (0-33); Albumin Level 4.5 g/dL (3.5-5.2); Alkaline Phosphatase 63 U/L (35-105); Anion Gap 13.5 (5-19); Aspartate Amino Transferase 13 U/L (0-32); Blood Urea Nitrogen 16 mg/dL (6-20); Calcium 9.3 mg/dL (8.5-10.5); Carbon Dioxide 24 mmol/L (22-29); Chloride 105 mmol/L (98-107); Globulin 2.7 g/dL (1.3-4.6); Glomerular Filtration Rate 77.2 mL/min (90-130); Glucose 93 mg/dL (65-115); Osmolality Calculated 287 mOsm/kg (285-295); Potassium 4.5 mmol/L (3.5-5.1); Sodium 138 mmol/L (136-145); Total Bilirubin 0.4 mg/dL (0.15-1.2); Total Protein 7.2 g/dL (6.6-8.7)
[2024-04-08 20:34] LABS: OR HCG Qualitative Urine Negative (Negative)
[2024-04-09] VITALS (16 sets, daily range): BP systolic 105–126; BP diastolic 67–83; PULSE 74–96; RESP 14–28; TEMP 36.4–36.8; O2SAT 96–100; BMI 27.4
[2024-04-09] MEDS: scopolamine 1.5 Patch 1 PATCH TRANSDERMA (06:11)
[2024-04-09] MEDS: sodium chloride 0.9% 1,000 ML 30 ML IV (06:11)
[2024-04-09] MEDS: sodium chloride 0.9% 500 ML IV (06:11)
[2024-04-09] MEDS: ceFOXitin 2,000 mg SDV 2000 MG IVP (06:18)
--- NOTE | 2024-04-09 06:46 | W.PM.OPSUD ---
Surgery/Procedure H&P Update DATE OF PROCEDURE: April 09, 2024 DATE H&P PERFORMED: 04/04/24 H&P UPDATE INFORMATION: I have reviewed H&P completed within last 30 days, I have examined patient prior to procedure and No changes to prior documentation PREOP DIAGNOSIS: Abnormal uterine bleeding, uterine fibroid, urinary stress incontinence PLANNED PROCEDURE: Operation Date: 04/09/24 07:00 Proposed Procedures p Total Vaginal Hysterectomy 52541, [id number],N92.0, D25.1, N39.3(Not Applicable) - Darion Delgado MD s Salpingo-Oophorectomy (Vaginal)(Bilateral) - Darion Delgado MD
--- NOTE | 2024-04-09 06:54 | P.ANESUD_ITS ---
Pre-Anesthetic Update Pre-Anesthetic Assessment: Date of Surgery/Procedure: 04/09/24 Preop Lesa gnosis: Abnormal uterine bleeding, uterine fibroid, urinary stress incontinence Proposed Procedure: Operation Date: 04/09/24 07:00 Proposed Procedures p Total Vaginal Hysterectomy 40212, [id number],N92.0, D25.1, N39.3(Not Applicable) - Darion Delgado MD s Salpingo-Oophorectomy (Vaginal)(Bilateral) - Darion Delgado MD Any changes to Pre-Anesthetic Assessment?: No Last Intake: Intake Last Liquid Date 04/08/24 Last Liquid Time 23:45 Last Solid Date 04/08/24 Last Solid Time 20:00 Labs Last 48hrs: Short CBC 04/08/24 Range/Units 08:28 WBC 5.59 (3.29-11.43) 10^ 3/uL Hgb 14.20 (11.27-16.99) g/ dL Hct 42.4 (36-47) % MCV 92.4 (85-98) fl Plt Count 313 (157-399) 10^3/c mm Neut % (Auto) 54.7 % Neut # (Auto) 3.06 (1.8-7.7) 10^3/u L BMP 04/08/24 08:28 Sodium 138 Potassium 4.5 Chloride 105 Carbon Dioxide 24 BUN 16 Creatinine 0.8 Glucose 93 Calcium 9.3 Liver Function 04/08/24 Range/Units 08:28 Total Bilirubin 0.4 (0.15-1.2) mg/dL AST 13 (0-32) U/L ALT 16 (0-33) U/L Alkaline Phosphata se 63 (35-105) U/L Albumin 4.5 (3.5-5.2) g/dL Urine 04/08/24 Range/Units 08:09 Urine Color Yellow (Yellow) Urine Appearance Cloudy A (CLEAR) Urine pH 5.5 (5-7) Ur Specific [place] 1.026 (1.005-1.030) Urine Protein Negative (Negative) Urine Glucose (UA) Negative (Normal) Urine Ketones Negative (Negative) Urine Nitrate Positive A (Negative) Urine Bilirubin Negative (Negative) Ur Leukocyte [place] Trace A (Negative) Urine RBC 11-20 H (0-2) /hpf Urine WBC 21-50 H (0-5) /hpf Blood Bank 04/08/24 08:28 Blood Type O Positive Rho(D) Type Rh positive Antibody Screen Negative Vitals: Temperature 97.6 F 04/09/24 06:01 Temperature Source Temporal Artery S can 04/09/24 06:01 Pulse Rate 83 04/09/24 06:01 Respiratory Rate 17 04/09/24 06:01 Blood Pressure 125/79 04/09/24 06:01 Blood Pressure Hedy n 94 04/09/24 06:01 Pulse Oximetry 97 04/09/24 06:01 Oxygen Delivery Me thod Room Air 04/09/24 06:03 Exam: Pre-Anes Outpt Exam: alert, oriented x 3, clear to auscultation bilaterally and regular rate & rhythm Cardiac Studies: No Data to Display
[2024-04-09] MEDS: metroNIDAZOLE IV 500 MG/100 ML PREMIX 100 MG IV (07:40)
[2024-04-09] MEDS: lidocaine-epi 2% PF 1:200,000 20 mL SDV INJECTION (07:41)
--- NOTE | 2024-04-09 09:27 | P.BOP_ITS ---
Date of Procedure: 04/09/24 Surgeon: Darion Delgado MD Strategy Execution Consultant(s): Procedure(s) performed: Total vaginal hysterectomy with bilateral salpingo- oophorectomy, anterior colporrhaphy augmented with allograft, mid urethral sling, cystoscopy. Findings of the procedure(s): Enlarged uterus, cystocele, normal appearance left the right ovary and fallopian tubes Estimated blood loss: 100 mL Specimen(s) removed: Uterus, left the right fallopian tube and ovary Post-operative diagnosis: Status post TVH and BSO, anterior colporrhaphy, mid urethral sling
--- NOTE | 2024-04-09 09:29 | P.OP_ITS ---
Operative Report Date of procedure: April 09, 2024 Pre-op diagnosis: Abnormal uterine bleeding Uterine fibroids Post-op diagnosis: same Post-op findings: Enlarged uterus, Cystocele Procedure done: Total vaginal hysterectomy with bilateral something, anterior colporrhaphy augmented with allograft, mid urethral sling, Cystoscopy Implants: Coloplast dermis allograft Coloplast Altis sling Specimens removed/disposition: Uterus Left the right fallopian tubes and ovaries Surgeon: Darion Delgado MD Estimated blood loss (mL): 100 IV fluids (mL): 700 Urine output (mL): 200 Complications: None Procedure: After informed consent and risks, benefits, indications and alternatives reviewed with the patient was taken to the operating room. The patient was placed in dorsal lithotomy position prepped, and draped in the usual sterile fashion. The pre-procedure timeout verifying the correct patient, procedure, site and side, could not requirements was performed and acknowledge by the OR team. A Beckett catheter was placed. A Bookwalter vaginal retractor was placed into the vagina in usual manner visualize the cervix. Cervix was grasped with a single tooth tenaculum and circumferentially infiltrated with 2% lidocaine with epinephrine. Then cervix was circumferentially incised with bovie and the bladder was dissected off the pubovesical cervical fascia anteriorly with a sponge stick and Metzenbaum scissors. The anterior peritoneal reflection was identified and the anterior cul-de-sac was entered sharply with Metzenbaum scissors. The same procedure was performed posteriorly and a posterior colpotomy was made through the posterior cul-de-sac space without difficulty and the posterior blade of the Bookwalter vaginal retractor was advanced posteriorly into the cul-de-sac. At this time, the left and right uterosacral ligaments were isolated and ligated with 0 Vicryl. The LigaSure device was placed over the uterosacral ligaments on either side and was then used in a serial fashion up through the cardinal ligaments bilaterally cross-clamped, cut, and sealed with the LigaSure device. Finally, the uterine arteries were cross-clamped, cut, sealed and ligated with the LigaSure device. Hemostasis was assured. The broad ligaments were then serially clamped, sealed and cut with the LigaSure device on both sides. Excellent hemostasis was visualized. Both cornua were clamped, sealed and cut with the LigaSure device. Then the pedicles were then suture ligated with excellent hemostasis. The uterus was excised and submitted for pathologic evaluation. No other abnormalities were noted in the pelvic cavity. Then the right side Infundibular ligament was identified. The ureter was confirmed along the pelvic side wall and peristalsis was noted. The LigaSure device was then used to clamp, sealed and transcepted at middistance, again being sure to be clear of the ureter and the fallopian tube and ovary were removed. The same process was then repeated on the left side. Good hemostasis was assure on both sides. The peritoneum was then closed in a pursestring fashion with 0 Vicryl suture. The vaginal cuff angles were closed with [id number] #0 Vicryl suture on both sides and transfixed with the ipsilateral cardinal and uterosacral ligaments. The remainder of the vaginal cuff was closed with #0 Vicryl in a running locked fashion. The vaginal mucosa was then injected in the midline with 2% lidocaine with ep inephrine. The vaginal mucosa was scored in the midline with the Bovie approximately 1 cm medial to the urethral meatus to 1 cm distal to the vaginal cuff. This vaginal mucosa was then undermined and then incised in the midline with the Metzenbaum scissors. The lateral aspects of the vaginal mucosa were then grasped with the Allis clamps and the vaginal mucosa was then dissected off the underlying fascia with the Metzenbaum scissors. Again, there was noted to be quite a bit of oozing at the incision, which was controlled with cautery. After adequate dissection was performed, bilaterally. A Coloplast Dermis allograft was modified at time of application to fit spacea, 3 x 3 cm piece. The Coloplast allograft was placed in front of cystocele ready to be implanted facing the vagina mucosa. Suture is placed at distal end of graft and placed towards vaginal cuff. Final suture is placed on proximal portion of the graft to complete the placement overlying the bladder. Then Interrupted vertical mattress sutures of 0 Vicryl were used to elevate the cystocele superiorly. The excessive vaginal mucosa was then trimmed with the Metzenbaum scissors and the vaginal mucosa was then reapproximated in the running interlocking fashion with 2-0 Vicryl. The anterior vaginal mucosa beneath the midurethra was infiltrated with 2% lidocaine with epinephrine. A vertical midline incision was made beneath the midurethra, nearly 1.5 cm length. Careful submucosal dissection was performed bilaterally up to the interior portion of the inferior pubic ramus. The insertion of adductor longus tendon on the patient?s pubic ramus was identified as reference land carrol. Palpated the notch along the internal edge of ischiopubic ramus where the adductor longus tendon and the inferior pubic ramus meet. The Altis single incision sling (SIS) was selected. Then the needle of the SIS inserted aiming at the location of this notch. One of the integrated self- fixating tips place onto the needle by sliding it over the end of the needle. The needle/sling assembly was inserted toward the location of identified reference notch making sure that the flat of the handle is perpendicular to the desired path. The needle was tracked along the posterior surface of the ischiopubic ramus until the midline carrol on the mesh is approximately at the midline position under the urethra. The needle was removed and the same was repeated on the contralateral side until the appropriate sling tension under the urethra was achieved ensuring that the mesh lays flat. The needle was removed and vaginal incision was closed in a running interlocking fashion with 2-0 Vicryl. At this time, instruments were removed from the vagina at hemostasis assured. Then the Beckett catheter was removed and cystoscope was inserted. The bladder was filled with sterile water. Complete evaluation of the bladder mucosa was performed noting no lacerations, dimpling, tears, bleeding of the mucosa or muscular layers. Both ureteral orifices were identified. Prompt excretion of urine from both ureteral orifices was noted. Cystoscope was withdrawn. Beckett catheter was then placed yielding clear rodrigo urine. A vaginal packing with Premarin cream was placed and the patient was taken out of dorsal lithotomy position and awakened from the general anesthesia. The patient tolerated the procedure well and was taken to the PACU recovery room in a stable condition. Sponge, lap, needle and instruments counts were correct x3.
--- NOTE | 2024-04-09 09:51 | PC.NURSE ---
0950 - report called to KOBY Pandya - notified this nurse that pt does have vaginal packing
--- NOTE | 2024-04-09 10:00 | ANE.PACU2 ---
Inpatient post-anesthesia follow up: Airway intact: Yes Vital signs: Temperature 98.3 F Pulse Rate 87 Respiratory Rate 16 Blood Pressure 118/79 Pulse Oximetry 96 Oxygen Delivery Me thod Room Air Oxygen Flow Rate 6 Fraction of Inspir ed Oxygen Hydration adequate: Yes Nausea and vomiting: No Pain level: 1 Mental status: Baseline
[2024-04-09] MEDS: dextrose 5%-lactated ringers 1,000 ML 125 ML IV ×2 (10:40→20:19)
[2024-04-09] MEDS: ketorolac 30 mg/mL INJ IVP ×2 (14:36→20:19)
--- NOTE | 2024-04-09 15:33 | PC.NURSE ---
WAS GOING TO GET PATINET UP AND SHE WAS ASLEEP SO JUST TOLD THAT I WOULD COME BACK LATER.
[2024-04-09] MEDS: docusate sodium 100 mg Capsule PO (18:36)
[2024-04-09] MEDS: nitrofurantoin SR (BID) 100 mg Capsule PO (18:36)
[2024-04-09] MEDS: HYDROcodone-acetaminophen 5-325 mg Tablet PO (18:36)
[2024-04-09] MEDS: simethicone 80 mg Chew PO (20:19)
[2024-04-10] MEDS: ketorolac 30 mg/mL INJ IVP (02:11)
[2024-04-10 05:00] VITALS: BP 123/73; PULSE 85; RESP 16; TEMP 36.9; O2SAT 96
--- NOTE | 2024-04-10 05:30 | PC.NURSE ---
Vaginal packing removed, scant bleeding on pad overnight. Patient tolerated procedure well. Will continue to monitor.
[2024-04-10 05:39] LABS: Hematocrit 36.3 % (36-47); Mean Corpuscular HGB Conc 32.5 g/dL (30-55); Mean Corpuscular Hemoglobin 30.3 pg (27-33); Mean Corpuscular Volume 93.1 fl (85-98); Mean Platelet Volume 9.2 fL (7.4-10.4); Platelet Count 262 10^3/cmm (157-399); Red Cell Distribution Width 12.3 % (12.1-15.1); White Blood Count 10.74 10^3/uL (3.29-11.43)
[2024-04-10] MEDS: ibuprofen 800 mg tablet PO (08:49)
[2024-04-10] MEDS: citalopram 20 mg Tablet 40 MG PO (08:49)
[2024-04-10] MEDS: pantoprazole DR 40 mg Tablet PO (08:49)
[2024-04-10] MEDS: nitrofurantoin SR (BID) 100 mg Capsule PO (08:49)
[2024-04-10] MEDS: docusate sodium 100 mg Capsule PO (08:49)
[2024-04-10 10:52] VITALS: BP 104/55; PULSE 85; RESP 16; TEMP 36.6; O2SAT 98
--- NOTE | 2024-04-10 13:35 | P.DS_ITS ---
Discharge Providers MECHANICAL PRODUCT DESIGN ENGINEER Date of Admission: 04/09/24 09:18 Date of Discharge: 04/10/24 Attending Provider at Admission: Darion Delgado MD Attending Provider at Discharge: Darion Delgado MD Primary Care Provider: Nicole Alvarado MD Reason for Visit Reason for Visit: D25.1 Hospital Course Hospital Course Mrs. Willingham 48-year-old female G4, P3 with a history of abnormal uterine bleeding unresponsive to medical management, uterine fibroids and stress urinary incontinence associated to cystocele. Admitted for planned total vaginal hysterectomy with bilateral salpingo-oophorectomy, anterior colporrhaphy augmented with allograft, and mid urethral sling. The procedures were performed without complication. Overnight observation uneventful. She is afebrile and hemodynamically stable postoperative day 1. Tolerating diet well. Ambulating without difficulty. She was counseled regarding pelvic rest for 6 weeks (no sex, no tampons, no vaginal douches). Return to the emergency room if any fever, increased bleeding or pain. Physical Exam Narrative: GA: Alert and oriented ?3. HEENT: WNL. Heart: Regular rate and rhythm. Lungs: Clear to auscultation bilaterally. Abdomen: Bowel sounds present, nontender. PROCUREMENT CONSULTANT: spotting bleeding. Extremities: No edema, no cyanosis, no calves pain. Urinary Catheter Management: Beckett: Cath Placed During This Visit: yes, but has since been removed by the nurse Reason for Continuing Indwelling Catheter: Decision to DC Catheter Urinary Catheter Date of Insertion: 04/09/24 Urinary Catheter Time of Insertion: 07:36 Date Urinary Catheter Removed: 04/10/24 Time Urinary Catheter Discontinued: 05:30 History History History 4 Term 3 0 Miscarriages/Ectopic 1 Living Children 3 Discharge Data Studies Completed and Pending Pending at discharge Category Date Time Status Pathology: Surgical [PTH] Routine Pth 04/09/24 08:35 Received Laboratory Results WBC 10.74 10^3/uL (3.29-11.43) 04/10/24 05:30 RBC 3.90 10^6/uL (3.85-5.65) 04/10/24 05:30 Hgb 11.80 g/dL (11.27-16.99) 04/10/24 05:30 Hct 36.3 % (36-47) 04/10/24 05:30 MCV 93.1 fl (85-98) 04/10/24 05:30 MCH 30.3 pg (27-33) 04/10/24 05:30 MCHC 32.5 g/dL (30-55) 04/10/24 05:30 RDW 12.3 % (12.1-15.1) 04/10/24 05:30 Plt Count 262 10^3/cmm (157-399) 04/10/24 05:30 MPV 9.2 fL (7.4-10.4) 04/10/24 05:30 Neut % (Auto) 54.7 % 04/08/24 08:28 Lymph % (Auto) 32.6 % 04/08/24 08:28 Rock % (Auto) 6.6 % 04/08/24 08:28 Eos % (Auto) 5.0 % 04/08/24 08:28 Baso % (Auto) 0.7 % 04/08/24 08:28 Neut # (Auto) 3.06 10^3/uL (1.8-7.7) 04/08/24 08:28 Lymph # (Auto) 1.8 10^3/uL (0.8-4.8) 04/08/24 08:28 Rock # (Auto) 0.4 10^3/uL (0.2-0.9) 04/08/24 08:28 Eos # (Auto) 0.3 10^3/uL (0.0-0.8) 04/08/24 08:28 Baso # (Auto) 0.0 10^3/uL (0.0-0.1) 04/08/24 08:28 Nucleated RBC % (auto) 0 % 04/08/24 08:28 Nucleated RBCs # 0.0 /100WBC 04/08/24 08:28 Sodium 138 mmol/L (136-145) 04/08/24 08:28 Potassium 4.5 mmol/L (3.5-5.1) 04/08/24 08:28 Chloride 105 mmol/L (98-107) 04/08/24 08:28 Carbon Dioxide 24 mmol/L (22-29) 04/08/24 08:28 Anion Gap 13.5 (5-19) 04/08/24 08:28 BUN 16 mg/dL (6-20) 04/08/24 08:28 Creatinine 0.8 mg/dL (0.5-0.9) 04/08/24 08:28 GFR Calculation 77.2 mL/min (90-130) L 04/08/24 08:28 Glucose 93 mg/dL (65-115) 04/08/24 08:28 Calculated Osmolality 287 mOsm/kg (285-295) 04/08/24 08:28 Calcium 9.3 mg/dL (8.5-10.5) 04/08/24 08:28 Total Bilirubin 0.4 mg/dL (0.15-1.2) 04/08/24 08:28 AST 13 U/L (0-32) 04/08/24 08: ALT 16 U/L (0-33) 04/08/24 08:28 Alkaline Phosphatase 63 U/L (35-105) 04/08/24 08:28 Total Protein 7.2 g/dL (6.6-8.7) 04/08/24 08:28 Albumin 4.5 g/dL (3.5-5.2) 04/08/24 08:28 Globulin 2.7 g/dL (1.3-4.6) 04/08/24 08:28 Urine Color Yellow (Yellow) 04/08/24 08:09 Urine Appearance Cloudy (CLEAR) A 04/08/24 08:09 Urine pH 5.5 (5-7) 04/08/24 08:09 Ur Specific Sabina 1.026 (1.005-1.030) 04/08/24 08:09 Urine Protein Negative (Negative) 04/08/24 08:09 Urine Glucose (UA) Negative (Normal) 04/08/24 08:09 Urine Ketones Negative (Negative) 04/08/24 08:09 Urine Blood Non-haemolysed trace (Negative) 04/08/24 08:09 Urine Nitrate Positive (Negative) A 04/08/24 08:09 Urine Bilirubin Negative (Negative) 04/08/24 08:09 Urine Urobilinogen 1.0 mg/dL (Negative) 04/08/24 08:09 Ur Leukocyte Esterase Trace (Negative) A 04/08/24 08:09 Urine RBC 11-20 /hpf (0-2) H 04/08/24 08:09 Urine WBC 21-50 /hpf (0-5) H 04/08/24 08:09 Ur Squamous Epith Cells 11-20 /hpf (0-5) 04/08/24 08:09 Amorphous Sediment Not Reportable 04/08/24 08:09 Urine Bacteria 4+ /hpf (NONE) H 04/08/24 08:09 Hyaline Casts 2.05 /lpf 04/08/24 08:09 Urine HCG, Qual Negative (Negative) 04/08/24 08:09 Blood Type O Positive 04/08/24 08:28 Rho(D) Type Rh positive 04/08/24 08:28 Antibody Screen Negative 04/08/24 08:28 Vitals Last Vital Signs Temp 97.8 F 04/10/24 10:52 Pulse 85 04/10/24 10:52 Resp 16 04/10/24 10:52 BP 104/55 04/10/24 10:52 Pulse Ox 98 04/10/24 10:52 O2 Del Method Room Air 04/10/24 10:52 O2 Flow Rate 6 04/09/24 09:31 Results Labs OB ([facility]): Blood Type O Positive 04/08/24 Antibody Screen Negative 04/08/24 Hct 36.3 % (36-47) 04/10/24 Hgb 11.80 g/dL (11.27-16.99) 04/10/24 Rho(D) Type Rh positive 04/08/24 Plt Count 262 10^3/cmm (157-399) 04/10/24 TSH 1.58 uIU/mL (0.27-4.20) 11/17/23 Free T4 1.32 ng/dL (0.82-1.77) 11/17/23 HCG, Qual Negative (Negative) 01/29/24 Micro Urine Specimen 01/29/24 Pap Smear Interpret See note 11/17/23 Discharge Plan Discharge Patient Disposition: Home Condition: Stable Prescriptions: New hydrocodone-acetaminophen 5-325 mg tablet 1 tab PO Q4H PRN (Reason: pain) Qty: 20 0RF nitrofurantoin macrocrystal 100 mg capsule 100 mg PO BID 3 Days Qty: 6 0RF Rx Instructions: must administer with a meal/food acetaminophen 325 mg capsule 325 mg PO Q4H PRN (Reason: fever or pain) Qty: 60 0RF ibuprofen 800 mg tablet 800 mg PO TID PRN (Reason: pain) Qty: 60 0RF Continued citalopram 40 mg tablet 40 mg PO DAILY omeprazole 40 mg capsule,delayed release(DR/EC) 40 mg PO DAILY norethindrone acetate 5 mg tablet 5 mg PO DAILY Rx Instructions: Take 1 tablet by mouth once daily Discharge Orders: Discharge Order (Routine); Ordered 04/10/24 Ordered By: Darion Delgado Referrals: Darion Delgado MD [Physician] - 04/19/24 9:15 am (6 week post-op: 05/20/24 @10:00) Discharge Diet: Usual diet Discharge Activity: Limit activity as instructed Patient Instructions: Acute Wound Care (DC), Salpingectomy (DC), Vaginal Hysterectomy (DC), Anterior Vaginal Repair (DC), Opioid Safety, Post Anesthesia Care, Bladder Sling for Women (GEN) Activity Restrictions/Additional Instructions: 1. Please call [facility] on next working day to make your post-operative appointment in 2 weeks. 2. Please stay home until you come back to the clinic on first post- hospatilization check up. 3. Please follow instructions on your medications CAREFULLY. 4. If you have abdominal incision, do not cover it unless dressing is necessary because of drainage. OK to shower, but avoid bath. Leave steri-strips until they fall off. If they are still on one week after surgery, you may remove them. 5. If you had vaginal surgery or vaginal repair, Dr. Delgado may instruct you to take SITZ bath. 6. Yellow, blood tinged odorous vaginal discharge is usually normal after hysterectomy or vaginal surgeries. 7. No SEXUAL INTERCOURSE, tampons, or douches until you are completely released from the post-operative care. 8. Avoid constipation by eating right and maybe using some Metamucil or Milk of Magnesia. 9. All prescription refills are given during the working hours. Please do no wait till it runs out. Call the clinic at [phone] before your medication runs out. The clinic will get in touch with your doctor to prescribe medications if necessary. 10. Please remain within 40 mile radius from our hospital because emergencies do happen now and then during the post-operative period. 11. If you have stairs at home, take one step at a time slowly and minimize the number of trips. It helps to stay in one floor for the next few days. No lifting except what you can lift by one hand until you are released from the post-operative care. 12. Driving is discouraged until you are well healed. It may be 3-4 weeks before you feel strong enough to drive. You should be able to turn and look through the rear window without pain and you should be able to push the brake pedal very hard without pain before you drive. No fast rules, but SAFETY should be your primary concern. DO NOT drive if you are on sedating medications such as narcotics. 13. Call the clinic (during working hours) to make urgent appointment or go to the Emergency room, if any of the following occurs: i. Vaginal bleeding becomes heavy, more than a period. ii. Incision becomes red and sore, or drains pus. iii. Your TEMPERATURE is over 100.4F or you have chill. iv. IV site becomes red and swollen (a little ``knot?? is usually OK) v. Persistent nausea and vomiting vi. Persistent constipation or diarrhea vii. Rash or allergic reaction to medications. Discharge Attestations MECHANICAL PRODUCT DESIGN ENGINEER Time Spent in Discharge Care*: greater than 30 min Coding Level of Care Code Acute Code for Chg Fwd
[2024-04-10 14:43] VITALS: BP 113/70; PULSE 84; RESP 16; TEMP 36.9; O2SAT 97
== END 2024-04-10 14:39 | disposition home or self-care (01) ==
LOC: OBGYN 09:20
PROVIDERS: Admitting Provider Obstetrics & Gynecology; PCP Family Medicine; Visit Provider Obstetrics & Gynecology
PROC: (CPT 57240; principal; 2024-04-09 07:00)
PROC: (CPT 58720; 2024-04-09 07:00)
PROC: (CPT 57288; 2024-04-09 07:00)
PROC: 0JQC0ZZ Repair Pelvic Region Subcutaneous Tissue and Fascia, Open Approach (ICD-10-PCS; CPT 57240; 2024-04-09 07:00)
DX: N93.9 Abnormal uterine and vaginal bleeding, unspecified (principal); K21.9 Gastro-esophageal reflux disease without esophagitis; D25.9 Leiomyoma of uterus, unspecified
CPT/HCPCS: 57240; 57288; 58262; 36415; 51798; 80053; 81003; 81015; 81025; 85025; 85027; 86850; 86900; 88307; C1713; C1762; G0378; J0131; J0694; J1100; J1170; J1200; J1885; J2250; J2371; J2405; J2704; J2710; J3010; J3490; J7030; J7040; J7121

== ENCOUNTER 2024-04-22 20:53 | Emergency (ER) | payer BC, SELFPAY ==
[2024-04-22 21:06] VITALS: BP 120/86; PULSE 94; RESP 16; TEMP 36.7; O2SAT 98
--- NOTE | 2024-04-22 21:13 | W.ED.FEMALGU ---
HPI - Female Genitourinary General: Chief complaint: Vaginal Bleeding Stated complaint: bleeding post hysterectomy Time Seen by Provider: 04/22/24 21:12 Source: patient Mode of arrival: ambulatory Limitations: no limitations History of Present Illness: Patient is a nice 49-year-old female presents to ED today with her significant other for evaluation of vaginal bleeding. Patient is 2 weeks status post total vaginal hysterectomy with bilateral salpingo-oophorectomy/ anterior colporrhaphy augmented with allograft/mid urethral sling/cystoscopy by Dr. Delgado. She states she has been doing well following the surgery and has had follow-up with their office. She states earlier this afternoon that she picked up her [id number] grandchild accidentally forgetting about her lifting restrictions. She states shortly after she went to the restroom and was surprised when she found vaginal bleeding. Patient denies any sudden onset of pain or gush/pop of fluid. She states since the bleeding she has soaked two pads. Upon arrival to the emergency department she does feel like bleeding has slowed down. She reports very mild abdominal/pelvic discomfort. MD elicited complaint: vaginal bleeding Onset (ago): hour(s) Severity: mild Vaginal discharge: none Vaginal bleeding: moderate and other (improving) Exacerbating factors: none Relieving factors: none Associated symptoms: Reports no associated symptoms and abdominal pain (extremely mild discomfort); Deny nausea or vaginal discharge Treatment prior to arrival: none Patient : No Related Data Home Medications Medication Instructions Recorded Confirmed citalopram 40 mg tablet 40 mg PO DAILY 01/29/24 04/19/24 omeprazole 40 mg capsule,delayed 40 mg PO DAILY 04/08/24 04/19/24 release docusate sodium 50 mg capsule 50 mg PO DAILY 04/19/24 04/19/24 (Stool Softener) Previous Rx's Medication Instructions Recorded acetaminophen 325 mg capsule 325 mg PO Q4H PRN fever or pain 04/10/24 #60 caps estradiol 0.025 mg/24 hr 1 patch transdermal .twice weekly 04/19/24 semiweekly transdermal patch #24 ea progesterone micronized 100 mg 100 mg PO BEDTIME #90 caps 04/19/24 capsule (Prometrium) Allergies Allergy/AdvReac Type Severity Reaction Status Date / Time famotidine [From Pepcid] Allergy VOMITING Verified 04/22/24 21:12 Review of Systems Const: Denies: fever(s), chills, body aches, fatigue or malaise Card: Denies: chest pain Resp: Denies: dyspnea GI: Reports: abdominal pain (extremely mild discomfort); Denies: nausea, vomiting or diarrhea : Reports: vaginal bleeding; Denies: flank pain, difficulty voiding, dysuria, urinary frequency, urinary urgency, urinary hesitancy, vaginal odor, vaginal discharge or pelvic pain Musc: Denies: back pain Neuro: Denies: dizziness PFSH ED PFSH: Medical History No pertinent past medical history neghx: htn,dm,thyroid,dvt/pe PCP: Dr. Alvarado Contraceptive management Abnormal uterine bleeding Surgical History History of tonsillectomy and adenoidectomy (~1986) Family History Grandmother Diabetes Maternal Grandmother Father Hypertension Mother Family history of thyroid problem Thyroid disease hypothyroid Family/Other Breast cancer Maternal aunt-breast cancer-dx in her 60s Paternal aunt-breast cancer-dx in her 40s Colon cancer Maternal Aunt--dx age 50's Cervical cancer Maternal Aunt Grandfather Stroke Maternal Denies family history of Ovarian cancer Heart disease Hypercholesteremia Uterine cancer Female Reproductive History: Para: 3 Spontaneous abortions: Yes Physical Exam Const: COMMON NORMALS: no acute distress, average body habitus, patient oriented x3, no limitations, healthy appearing, alert and well nourished Resp: COMMON NORMALS: normal respiratory effort and clear to auscultation bilaterally AUSCULTATION: clear to auscultation bilaterally Cardio: COMMON NORMALS: regular rate and regular rhythm RATE: regular rate RHYTHM: regular rhythm GI: COMMON NORMALS: Normal to inspection, nondistended, normoactive bowel sounds present, Soft to palpation, non-tender and no masses PALPATION: Yes Soft to palpation : COMMON NORMALS: Yes no CVA tenderness BLADDER/KIDNEY EXAM: Yes no CVA tenderness OTHER: deferred Back/Pelvis: COMMON NORMALS: no CVA tenderness Neuro: COMMON NORMALS: patient oriented x3 SENSORIUM/ORIENTATION: Yes alert Course Consultations: Consultation #1: Dr. Zamora-had extremely low suspicion at this time for vaginal cuff dehiscence; did not recommend pelvic examination or US imaging/CT scan; anticipated bleeding resolving over the next day or so; return to ED precautions discussed Vital Signs: Vital signs: Vital Signs Temperature 98.0 F 04/22/24 21:06 Pulse Rate 91 04/22/24 21:53 Respiratory Rate 16 04/22/24 21:53 Blood Pressure 117/96 04/22/24 21:53 Pulse Oximetry 97 04/22/24 21:53 Oxygen Delivery Me thod Room Air 04/22/24 21:06 MDM - Female Medical Decision Making Patient here for bright red bleeding approximately 2 weeks status post hysterectomy. She is not having any severe vaginal/abdominal/pelvic pain. Denies any gush or pop of fluid. She arrives in no acute distress with stable vital signs. Discussed case with OBGYN on-call. Did not recommend pelvic exam or imaging. Return to ED precautions discussed with patient who voiced understanding. Medical Records I reviewed the patient's medical records. No radiology studies performed this visit Discharge Plan Discharge Patient Disposition: Home Clinical Impression: Post-op bleeding Condition: Stable Prescriptions: No Action Stool Softener 50 mg capsule 50 mg PO DAILY progesterone micronized [Prometrium] 100 mg capsule 100 mg PO BEDTIME Qty: 90 0RF estradiol 0.025 mg/24 hr patch semiweekly 1 patch transdermal .twice weekly Qty: 24 0RF citalopram 40 mg tablet 40 mg PO DAILY omeprazole 40 mg capsule,delayed release(DR/EC) 40 mg PO DAILY acetaminophen 325 mg capsule 325 mg PO Q4H PRN (Reason: fever or pain) Qty: 60 0RF Discharge Orders: Discharge ED (Routine); Ordered 04/22/24 Ordered By: Uma Lemons Referrals: Nicole Alvarado MD [Primary Care Provider] - Activity Restrictions/Additional Instructions: As we discussed, I would anticipate bleeding to slow/subside over the next 24 to 48 hours. You need to return to the emergency department for worsening bleeding, continued heavy bleeding (soaking more than 1 pad an hour), severe vaginal or abdominal pain, fevers, or any other concerns you may have. Coding Level of Care Code ED Assembly Machine Operator for Clarissa Harris
[2024-04-22 21:53] VITALS: BP 117/96; PULSE 91; RESP 16; O2SAT 97
[2024-04-22 23:44] VITALS: BP 135/98; PULSE 70; O2SAT 98
== END 2024-04-22 22:34 | disposition home or self-care (01) ==
PROVIDERS: Emergency Provider Physician Assistant; PCP Family Medicine
DX: N99.820 Postprocedural hemorrhage of a genitourinary system organ or structure following a genitourinary system procedure (principal)
CPT/HCPCS: 99281

== ENCOUNTER → 2024-07-17 09:51 | Outpatient (BNVA) | payer BC, SELFPAY | PROVIDERS: PCP Family Medicine; Visit Provider Nurse Practitioner Women's Health | DX: E89.41 Symptomatic postprocedural ovarian failure (principal) | CPT/HCPCS: 82670 ==

== ENCOUNTER 2024-10-18 11:26 | Outpatient (CLI) | payer BC, SELFPAY ==
--- NOTE | 2024-10-18 13:40 | MM_ITS ---
WS: [id number] BILATERAL 3D TOMOSYNTHESIS DIGITAL SCREENING MAMMOGRAPHY WITH CAD CLINICAL INFORMATION: Z12.31 - Encounter for screening mammogram for malignant ... HISTORY: Screening mammogram. No current complaints. COMPARISON: 2022 TECHNIQUE: Bilateral CC and MLO views. FINDINGS: The breasts are composed of heterogeneous fibroglandular density tissue, which can limit the detection of small underlying mass lesions. No suspicious mass, asymmetry, calcifications, or architectural distortion. No evidence of malignancy. MM/MM [facility] tomosynthesis [id number] IMPRESSION: DENSITY: The breasts are heterogeneously dense, which may obscure small masses. BI-RADS: 1 - Negative FOLLOW UP: 1 Year Follow-up Recommend return to annual screening mammography.
== END 2024-10-18 11:27 | disposition home or self-care (01) ==
PROVIDERS: PCP Family Medicine; Visit Provider Nurse Practitioner Women's Health
DX: Z12.31 Encounter for screening mammogram for malignant neoplasm of breast (principal); R92.333 Mammographic heterogeneous density, bilateral breasts
CPT/HCPCS: 77063; 77067

== ENCOUNTER → 2024-11-29 12:50 | Outpatient (BNVA) | payer BC, SELFPAY | PROVIDERS: PCP Family Medicine; Visit Provider Nurse Practitioner Women's Health | DX: R30.0 Dysuria (principal) | CPT/HCPCS: 81000 ==

== ENCOUNTER 2024-12-16 07:48 | Oncology outpatient (recurring) (ONCR) | payer BC, SELFPAY ==
[2024-12-16 08:12] LABS: Eosinophils # 0.4 10^3/uL (0.0-0.8); Eosinophils % 9.8 %; Hematocrit 39.2 % (36-47); Lymphocytes # 1.5 10^3/uL (0.8-4.8); Lymphocytes % 36.7 %; Mean Corpuscular HGB Conc 33.4 g/dL (30-55); Mean Corpuscular Hemoglobin 30.3 pg (27-33); Mean Corpuscular Volume 90.5 fl (85-98); Mean Platelet Volume 9.5 fL (7.4-10.4); Monocytes # 0.4 10^3/uL (0.2-0.9); Monocytes % 9.8 %; Neutrophils # 1.79 10^3/uL (1.8-7.7); Neutrophils % 42.5 %; Nucleated Red Blood Cells % 0 %; Platelet Count 217 10^3/cmm (157-399); Red Blood Count 4.33 10^6/uL (3.85-5.65); Red Cell Distribution Width 12.1 % (12.1-15.1)
[2024-12-16 08:27] LABS: Alanine Aminotransferase 19 U/L (0-33); Albumin Level 4.5 g/dL (3.5-5.2); Alkaline Phosphatase 83 U/L (35-105); Anion Gap 16.1 (5-19); Aspartate Amino Transferase 18 U/L (0-32); Blood Urea Nitrogen 13 mg/dL (6-20); Calcium 9.1 mg/dL (8.5-10.5); Carbon Dioxide 22 mmol/L (22-29); Chloride 104 mmol/L (98-107); Creatinine Clr Calc Pharmacy 89.9155; Ferritin 78 ng/mL (15-150); Globulin 2.3 g/dL (1.3-4.6); Glomerular Filtration Rate 76.9 mL/min (90-130); Glucose 92 mg/dL (65-115); Osmolality Calculated 286 mOsm/kg (285-295); Potassium 4.1 mmol/L (3.5-5.1); Sodium 138 mmol/L (136-145); Total Bilirubin 0.4 mg/dL (0.15-1.2); Total Protein 6.8 g/dL (6.6-8.7)
[2024-12-16 08:44] LABS: Iron 92 ug/dL (37-145); Percent Saturation 28.6 % (20-50); Total Iron Binding Capacity 321 mcg/dl; Unsaturated Iron Binding 229 ug/dL (112-347)
== END 2024-12-28 23:59 | disposition home or self-care (01) ==
PROVIDERS: PCP Family Medicine; Visit Provider Internal Medicine Medical Oncology
DX: R53.83 Other fatigue (principal)
CPT/HCPCS: 36415; 80053; 82728; 83540; 83550; 85025